=== PATIENT | female | born 1980 | race Caucasian/White ===

== ENCOUNTER → 2017-01-16 | Outpatient (REF) | payer BC | LOC: M SFHCWAGY 16:01 | PROVIDERS: ATTEND Nurse Practitioner Women's Health | DX: Z12.4 Encounter for screening for malignant neoplasm of cervix (principal) ==

== ENCOUNTER → 2017-03-06 | Outpatient (CLI) | payer BC | LOC: M WHC 09:28 | PROVIDERS: ATTEND Nurse Practitioner Women's Health | DX: Z53.8 Procedure and treatment not carried out for other reasons (principal) ==

== ENCOUNTER → 2018-02-26 | Outpatient (REF) | payer BC ==
[2018-03-01 14:28] LABS: HPV HYBRID CAPTURE II Negative (Negative)
== END ==
LOC: M SFHCWAGY 16:09
DX: Z12.4 Encounter for screening for malignant neoplasm of cervix (principal)
CPT/HCPCS: G0123

== ENCOUNTER → 2019-03-26 | Outpatient (CLI) | payer BC ==
--- NOTE | 2019-03-30 12:59 | REP ---
Clinical: Irregular menstrual cycles. Technique: Transabdominal pelvic ultrasound followed by transvaginal examination for better evaluation of the endometrium and adnexa. Findings: Bladder is normal in appearance and measures 9.9 x 8.5 x 9.1 cm. Heterogeneous anteverted/left lateral uterus measures 6.6 x 3.9 x 4.7 cm. Endometrial complex measures 5.0 mm thickness. Left intramural fibroid measures 1.2 cm maximal diameter and anterior fundal fibroid measures 1.1 cm maximal diameter. Left ovary is normal and measures 3.0 x 1.7 x 3.4 cm. Right ovary measures 2.6 x 1.5 x 2.6 cm and includes 3.5 x 1.6 x 1.2 cm paraovarian cyst. No pelvic fluid or adnexal mass lesion. Impression: 1. Heterogeneous anteverted uterus with two fibroids measuring up to 1.2 cm maximal diameter. 2. Right paraovarian cyst. Consider follow-up examination in 4-6 weeks to evaluate for resolution.
== END ==
LOC: M WHC 14:50
PROVIDERS: ATTEND Nurse Practitioner Women's Health
DX: N92.1 Excessive and frequent menstruation with irregular cycle (principal); Z86.018 Personal history of other benign neoplasm; N83.8 Other noninflammatory disorders of ovary, fallopian tube and broad ligament

== ENCOUNTER → 2020-03-03 | Outpatient (REF) | payer BC ==
[2020-03-03 17:33] LABS: FREE T4 1.1 NG/DL (0.76-1.46); THYROID STIMULATING HORMONE 0.901 uIU/ML (0.358-3.740)
[2020-03-03 17:38] LABS: ESTRADIOL 54.9 PG/ML; LUTEINIZING HORMONE 4.1 mIU/mL
[2020-03-03 17:39] LABS: FOLLICLE STIMULATING HORMONE 7.7 mIU/mL
[2020-03-10 13:14] LABS: 17 HYDROXY PROGESTERONE 27 ng/dL (.); ANTI MULLERIAN HORMONE 1.36 ng/mL (.); TESTOSTERONE FREE (DIRECT) 0.8 pg/mL (0.0-4.2)
== END ==
LOC: M PLALAB 14:47
PROVIDERS: ATTEND Nurse Practitioner Women's Health
DX: Z12.4 Encounter for screening for malignant neoplasm of cervix (principal); Z31.69 Encounter for other general counseling and advice on procreation
CPT/HCPCS: 36415; 82627; 82670; 83001; 83002; 83498; 83516; 84146; 84402; 84403; 84439; 84443; G0123

== ENCOUNTER → 2021-02-27 | Outpatient (REF) | payer BC | LOC: M SFHCWAGY 13:18 | PROVIDERS: ATTEND Nurse Practitioner Women's Health | DX: Z12.4 Encounter for screening for malignant neoplasm of cervix (principal) ==

== ENCOUNTER → 2021-10-10 | Outpatient (CLI) | payer BC ==
[2021-10-10 16:21] LABS: BASO % 0.5 % (0.0-1.0); EOS # 0.1 10^3/uL (0.0-0.5); EOS % 0.9 % (0.0-3.0); HEMATOCRIT 38.9 % (36.0-47.0); HEMOGLOBIN 12.8 g/dl (12.0-15.5); LYMPH # 2.2 10^3/uL (1.5-5.0); LYMPH % 25.3 % (24.0-44.0); MEAN CORPUSCULAR HEMOGLOBIN 26.7 pg (27.0-33.0); MEAN CORPUSCULAR HGB CONC 32.9 g/dl (32.0-36.5); MEAN CORPUSCULAR VOLUME 81.2 fl (80.0-96.0); MONO # 0.6 10^3/uL (0.0-0.8); MONO % 7.2 % (2.0-8.0); NEUTROPHILS # 5.7 10^3/uL (1.5-8.5); NEUTROPHILS % 65.9 % (36.0-66.0); PLATELET COUNT, AUTOMATED 208 10^3/uL (150-450); RED BLOOD COUNT 4.79 10^6/uL (4.00-5.40); WHITE BLOOD COUNT 8.7 10^3/uL (4.0-10.0)
[2021-10-10 17:39] LABS: HEPATITIS C VIRUS ABY INDEX 0.1 INDEX (<0.8); HIV 1&2 SCREEN CENTAUR NEGATIVE (NEGATIVE)
[2021-10-10 17:55] LABS: GC DNA AMPLIFICATION NEGATIVE (NEGATIVE)
== END ==
LOC: M PLALAB 11:19
PROVIDERS: ATTEND Specialist
DX: Z36.89 Encounter for other specified antenatal screening (principal)

== ENCOUNTER → 2021-11-13 | Outpatient (CLI) | payer BC | LOC: M WHC 08:33 | PROVIDERS: ATTEND Advanced Practice Midwife | DX: Z53.9 Procedure and treatment not carried out, unspecified reason (principal) ==

== ENCOUNTER → 2021-11-30 | Outpatient (CLI) | payer BC | LOC: M WHC 14:02 | PROVIDERS: ATTEND Advanced Practice Midwife | DX: O09.519 Supervision of elderly primigravida, unspecified trimester (principal); Z3A.20 20 weeks gestation of pregnancy ==

== ENCOUNTER → 2022-01-16 | Outpatient (CLI) | payer BC ==
[2022-01-16 13:35] LABS: HEMATOCRIT 37.2 % (36.0-47.0); HEMOGLOBIN 12.5 g/dl (12.0-15.5); MEAN CORPUSCULAR HEMOGLOBIN 29.2 pg (27.0-33.0); MEAN CORPUSCULAR HGB CONC 33.6 g/dl (32.0-36.5); MEAN CORPUSCULAR VOLUME 86.9 fl (80.0-96.0); PLATELET COUNT, AUTOMATED 156 10^3/uL (150-450); RED BLOOD COUNT 4.28 10^6/uL (4.00-5.40); WHITE BLOOD COUNT 8.8 10^3/uL (4.0-10.0)
== END ==
LOC: M PLALAB 08:42
PROVIDERS: ATTEND Specialist
DX: Z34.02 Encounter for supervision of normal first pregnancy, second trimester (principal)
CPT/HCPCS: 36415; 82950; 85027; 86850; 86900; 86901; J2790

== ENCOUNTER → 2022-03-26 | Outpatient (REF) | payer BC | LOC: M SFHCWAGY 12:55 | PROVIDERS: ATTEND Obstetrics & Gynecology | DX: Z36.85 Encounter for antenatal screening for Streptococcus B (principal) ==

== ENCOUNTER 2022-04-16 09:53 | Outpatient (CLI) | payer BC ==
[~2022-04-16] VITALS: Ht 165.1 cm; Wt 116.6 kg
[2022-04-16] VITALS (8 sets, daily range): BP systolic 109–172; BP diastolic 56–109
[2022-04-16] MEDS ORDERED: VITA1CHW11 PO (10:12)
[2022-04-16] MEDS ORDERED: ACET-897 PO (10:12)
[2022-04-16] MEDS ORDERED: ECOT81TA5 PO (10:12)
[2022-04-16] MEDS ORDERED: CLAR10CA3 PO (10:12)
[2022-04-16] MEDS ORDERED: PRENTAB9 PO (10:12)
[2022-04-16] MEDS ORDERED: HOME MED LIST COMPLETE! XX SCH (10:15)
[2022-04-16 12:41] LABS: HEMATOCRIT 36.6 % (36.0-47.0); HEMOGLOBIN 11.6 g/dl (12.0-15.5); MEAN CORPUSCULAR HGB CONC 31.7 g/dl (32.0-36.5); MEAN CORPUSCULAR VOLUME 85.3 fl (80.0-96.0); PLATELET COUNT, AUTOMATED 162 10^3/uL (150-450); RED BLOOD COUNT 4.29 10^6/uL (4.00-5.40); WHITE BLOOD COUNT 8.6 10^3/uL (4.0-10.0)
[2022-04-16 12:48] LABS: CREATININE,RANDOM URINE 44.7 MG/DL; TOTAL PROTEIN,RANDOM URINE 7.6 MG/DL (0.0-12.0)
[2022-04-16 12:50] LABS: ALT/SGPT 18 U/L (12-78); BILIRUBIN,TOTAL 0.3 MG/DL (0.2-1.0); CREATININE FOR GFR 0.67 MG/DL (0.55-1.30); GLOMERULAR FILTRATION RATE > 60.0 (>60); LDH LACTATE DEHYDROGENASE 164 U/L (84-246); URIC ACID 4.4 MG/DL (2.6-6.0)
== END 2022-04-16 13:23 | disposition home or self-care (01) ==
LOC: M LDO 09:53
PROVIDERS: ATTEND Advanced Practice Midwife
DX: O13.3 Gestational [pregnancy-induced] hypertension without significant proteinuria, third trimester (principal); O09.513 Supervision of elderly primigravida, third trimester; Z3A.39 39 weeks gestation of pregnancy
CPT/HCPCS: 36415; 59025; 82247; 82565; 82570; 83615; 84156; 84450; 84460; 84550; 85027; G0463

== ENCOUNTER 2022-04-19 12:17 | Inpatient (IN) | payer BC ==
[2022-04-19] VITALS (32 sets, daily range): BP systolic 107–157; BP diastolic 51–84
[~2022-04-19] VITALS: Ht 165.1 cm; Wt 115.5 kg
[~2022-04-19 12:17] MED LIST: ACET-897 PO; CLAR10CA3 PO; ECOT81TA5 PO; PRENTAB9 PO; VITA1CHW11 PO
[2022-04-19] MEDS ORDERED: PENICILLIN G POTASSIUM 5 MU IV 5 MU in D5W MINI-BAG PLUS 100 ML IV STA (13:54)
[2022-04-19 14:38] LABS: HEMATOCRIT 36.5 % (36.0-47.0); HEMOGLOBIN 12.3 g/dl (12.0-15.5); MEAN CORPUSCULAR HEMOGLOBIN 28.3 pg (27.0-33.0); MEAN CORPUSCULAR HGB CONC 33.7 g/dl (32.0-36.5); MEAN CORPUSCULAR VOLUME 83.9 fl (80.0-96.0); PLATELET COUNT, AUTOMATED 171 10^3/uL (150-450); RED BLOOD COUNT 4.35 10^6/uL (4.00-5.40); WHITE BLOOD COUNT 11.3 10^3/uL (4.0-10.0)
[2022-04-19] MEDS ORDERED: PROMETHAZINE 25MG/ML 1ML VIAL IV ONE (14:50)
[2022-04-19] MEDS ORDERED: BUTORPHANOL 2 MG/ML INJ (J0595) IV ONE (14:50)
[2022-04-19] MEDS: PENICILLIN G POTASSIUM IV 2.5 MU in IV 1 EA IV SCH ×2 (19:20→23:18)
[2022-04-19] MEDS ORDERED: FENTANYL 2MCG/ML ROPIVACAINE 0.2% IN 0.9% NACL 100ML IVBAG As Ordered ONE (20:42)
[2022-04-19] MEDS ORDERED: **PENDING PCN ENTRY XX SCH (21:00)
[2022-04-19] MEDS ORDERED: ePHEDrine SULFATE 25 MG/5 ML(5MG/ML) SYRINGE IVP PRN (21:50)
[2022-04-19] MEDS ORDERED: diphenhydrAMINE 50MG/ML VIAL (J1200) IV PRN (21:50)
[2022-04-19] MEDS ORDERED: EPIDURAL/PCA KEYS XX PRN (21:50)
[2022-04-19] MEDS ORDERED: LR 500 ML IV PRN (21:50)
[2022-04-19] MEDS ORDERED: NALOXONE INJ 0.4MG/1ML VIAL (J2310 PER 1MG) IV PRN (21:50)
[2022-04-19] MEDS ORDERED: ONDANSETRON 4MG 2ML VIAL IV PRN (21:50)
[2022-04-19] MEDS: FENTANYL/ROPIVACAINE/NACL BAG 100 ML EPIDURAL SCH (21:57)
[2022-04-20] VITALS (48 sets, daily range): BP systolic 98–150; BP diastolic 50–79
[2022-04-20] MEDS ORDERED: OXYTOCIN DRIP 30 UNITS in IV 1 EA IV SCH (00:45)
[2022-04-20] MEDS: LR 1,000 ML IV SCH ×2 (01:02→03:27)
[2022-04-20] MEDS: PENICILLIN G POTASSIUM IV 2.5 MU in IV 1 EA IV SCH ×2 (03:26→07:26)
[2022-04-20] MEDS: FENTANYL/ROPIVACAINE/NACL BAG 100 ML EPIDURAL SCH (05:57)
[2022-04-20] MEDS ORDERED: LIDOCAINE 1% MDV 20ML VIAL As Ordered ONE (11:22)
[2022-04-20] MEDS ORDERED: LIDOCAINE 1% MDV 20ML VIAL SC ONE (11:25)
[2022-04-20] MEDS ORDERED: LIDOCAINE 1% MDV 20ML VIAL INFIL ONE (11:55)
[2022-04-20] MEDS ORDERED: OXYTOCIN DRIP 30 UNITS in IV 1 EA IV ONE (11:55)
[2022-04-20] MEDS ORDERED: METHYLERGONOVINE MALEATE 0.2 MG TAB PO PRN (11:55)
[2022-04-20] MEDS ORDERED: IBUPROFEN 800 MG TAB PO PRN (11:55)
[2022-04-20] MEDS ORDERED: IBUPROFEN 600MG TAB PO PRN (11:55)
[2022-04-20] MEDS ORDERED: RHOGAM 300 MCG (1500 IU) INJ (J2790) IM SCH (11:55)
[2022-04-20] MEDS ORDERED: ACETAMINOPHEN 500 MG TAB PO PRN (11:55)
[2022-04-20] MEDS ORDERED: ONDANSETRON 4MG 2ML VIAL IV PRN (11:55)
[2022-04-20] MEDS ORDERED: DOCUSATE SODIUM 100MG CAPSULE PO PRN (11:55)
[2022-04-20] MEDS ORDERED: DIBUCAINE 1% OINTMENT 30GM TOP PRN (11:55)
[2022-04-20] MEDS ORDERED: ACETAMINOPHEN TAB 650MG DOSE (2X325MG) PO PRN (11:55)
[2022-04-21 06:00] VITALS: BP 134/70
[2022-04-21] MEDS: PRENATAL VITAMINS CHEWABLE TABLET PO SCH (09:02)
[2022-04-21 18:00] VITALS: BP 133/72
[2022-04-22 06:00] VITALS: BP 139/73
[2022-04-22] MEDS: PRENATAL VITAMINS CHEWABLE TABLET PO SCH (08:26)
[2022-04-22] MEDS ORDERED: MEASLES,MUMPS,RUBELLA VACCINE INJ (MMR-II) (90707) SC.IMMUN ONE (09:00)
== END 2022-04-22 14:15 | disposition home or self-care (01) | DRG 560 ==
LOC: M LDO 12:17 → M LDI 13:33 → M OBS 04-20 13:12
PROVIDERS: ADMIT Specialist; ATTEND Specialist
PROC: 10E0XZZ Delivery of Products of Conception, External Approach (ICD-10-PCS; principal; 2022-04-20)
PROC: 10907ZC Drainage of Amniotic Fluid, Therapeutic from Products of Conception, Via Natural or Artificial Opening (ICD-10-PCS; 2022-04-20)
PROC: 0KQM0ZZ Repair Perineum Muscle, Open Approach (ICD-10-PCS; 2022-04-20)
DX: O69.2XX0 Labor and delivery complicated by other cord entanglement, with compression, not applicable or unspecified (principal); O69.81X0 Labor and delivery complicated by cord around neck, without compression, not applicable or unspecified; O70.1 Second degree perineal laceration during delivery; O99.824 Streptococcus B carrier state complicating childbirth; Z37.0 Single live birth; Z3A.39 39 weeks gestation of pregnancy

== ENCOUNTER → 2022-10-24 | Outpatient (CLI) | payer BC | LOC: M WHC 10:50 | PROVIDERS: ATTEND Nurse Practitioner Family | DX: N63.21 Unspecified lump in the left breast, upper outer quadrant (principal) | CPT/HCPCS: 76642; 77066; G0279 ==

== ENCOUNTER → 2023-01-09 | Outpatient (REF) | payer BC | LOC: M SFHCWAGY 17:52 | PROVIDERS: ATTEND Nurse Practitioner Family | DX: Z12.4 Encounter for screening for malignant neoplasm of cervix (principal) | CPT/HCPCS: 87624; G0123 ==

== ENCOUNTER → 2023-04-02 | Outpatient (CLI) | payer BC | LOC: M WHC 08:12 | PROVIDERS: ATTEND Surgery | DX: R92.8 Other abnormal and inconclusive findings on diagnostic imaging of breast (principal) | CPT/HCPCS: 77065; G0279 ==

== ENCOUNTER → 2024-01-13 | Outpatient (CLI) | payer BC | LOC: M WHC 14:38 | PROVIDERS: ATTEND Nurse Practitioner Family | DX: Z12.31 Encounter for screening mammogram for malignant neoplasm of breast (principal); N63.21 Unspecified lump in the left breast, upper outer quadrant ==

== ENCOUNTER → 2024-01-29 | Outpatient (CLI) | payer BC | LOC: M WHC 10:29 | PROVIDERS: ATTEND Nurse Practitioner Family | DX: Z12.31 Encounter for screening mammogram for malignant neoplasm of breast (principal) | CPT/HCPCS: 76642; 77065; G0279 ==

== ENCOUNTER → 2025-04-06 | Outpatient (REF) | payer BC ==
[2025-04-08 14:22] LABS: HPV APTIMA Not Detected (Not Detected)
== END ==
LOC: M SFHCWAGY 14:56
PROVIDERS: ATTEND Nurse Practitioner Family
DX: Z01.419 Encounter for gynecological examination (general) (routine) without abnormal findings (principal)
CPT/HCPCS: 87624; G0123

== ENCOUNTER → 2025-04-06 | Outpatient (CLI) | payer BC | LOC: M WHC 13:45 | PROVIDERS: ATTEND Nurse Practitioner Family | DX: R92.8 Other abnormal and inconclusive findings on diagnostic imaging of breast (principal) | CPT/HCPCS: 77066; 87624; G0123; G0279 ==